=== PATIENT | male | born 1975 | race Caucasian/White ===

== ENCOUNTER 2017-09-20 17:05 | Emergency (ER) | payer OTHER, SELFPAY ==
[2017-09-20 17:06] VITALS: BP 136/90; PULSE 88; RESP 16; TEMP 37.1; O2SAT 96; BMI 29.3
--- NOTE | 2017-09-20 17:30 | ED.VISSUMM ---
- ER Visit Summary Date of Service: 09/20/17 Chief Complaint: Right small finger laceration History of Present Illness: The patient is a 42 M presenting with left small finger laceration. Patient was taking out the trash and cut his left small finger on a piece of porcelain from an old toilet. He states there were not small pieces of glass it was one sharp piece. He does not feel a foreign body sensation. His tetanus is up-to-date. No other injuries. Physical Examination: Vitals are stable. Patient is afebrile. Alert no acute distress. HEENT exam is unremarkable. Lungs are clear and equal bilaterally. Heart is regular rate and rhythm. Extremities left volar fifth digit proximal 2.5 cm laceration. Tendon function intact. Normal cap refill. Skin is warm and dry. No focal neurologic deficit. Remainder of exam is unremarkable. Emergency Department Course and Treatment: Laceration was repaired under sterile conditions. Anesthetized with LET, lidocaine. Irrigated with saline. Wound was explored, no foreign body visualized. 5, 5-0 simple sutures were placed. Patient tolerated this well. Advised to watch for signs of infection. Advised to follow-up for suture removal. Disposition: Discharge home Impression: Left small finger laceration, laceration repair This note was generated with [employer] dictation software. It may contain incorrect words, spelling, and punctuation that were not noted in review of the chart prior to signing ED Disposition - Plan for ED Patient: Chief Complaint: Laceration Referrals: Alex Abdullahi MD [Primary Care Provider] -
[2017-09-20] MEDS: Lidocaine/Epi/Tetracaine 50 ML 1 APPLIC TOPICAL (17:31)
--- NOTE | 2017-09-20 18:04 | ED.DEP ---
ED Disposition - Plan for ED Patient: Chief Complaint: Laceration Instructions: ED Laceration Hand Referrals: Alex Abdullahi MD [Primary Care Provider] -
[2017-09-20 18:19] VITALS: BP 103/70; PULSE 63; RESP 18; O2SAT 96
== END 2017-09-20 18:19 | disposition home or self-care (01) ==
PROVIDERS: Emergency Provider Emergency Medicine; Family Provider Family Medicine; PCP Family Medicine
DX: S61.217A Laceration without foreign body of left little finger without damage to nail, initial encounter (principal); W25.XXXA Contact with sharp glass, initial encounter; Y93.E9 Activity, other interior property and clothing maintenance; Y92.9 Unspecified place or not applicable; Y99.9 Unspecified external cause status
CPT/HCPCS: 12001; 99283

== ENCOUNTER → 2018-05-30 17:29 | Outpatient (CLI) | payer OTHER, SELFPAY | PROVIDERS: Family Provider Family Medicine; PCP Family Medicine; Referring Provider Family Medicine; Visit Provider Family Medicine | DX: T81.30XA Disruption of wound, unspecified, initial encounter (principal) | CPT/HCPCS: 87070; 87077; 87186; 87205 ==

== ENCOUNTER → 2018-12-20 10:25 | Outpatient (CLI) | payer OTHER, SELFPAY ==
[2018-12-20 12:55] LABS: Anion Gap 9 (5-15); BUN 20 mg/dL (7-18); Calcium,Total 8.9 mg/dL (8.5-10.1); Chloride 104 mmol/L (98-107); Creatinine, Serum 1.05 mg/dL (0.70-1.30); EST Glomerular Filtration Rate 82 mL/min (>60); Est Glom Filt Rate - Afr Amer 100 mL/min (>60); Glucose 134 mg/dL (74-106); Potassium 4.2 mmol/L (3.5-5.1); Sodium Level 141 mmol/L (136-145); Thyroid Stim Hormone (TSH) 1.12 uIU/mL (0.358-3.74)
== END ==
PROVIDERS: Family Provider Family Medicine; PCP Family Medicine; Referring Provider Family Medicine; Visit Provider Family Medicine
DX: R42 Dizziness and giddiness (principal)
CPT/HCPCS: 36415; 80048; 84443

== ENCOUNTER → 2019-01-15 15:52 | Outpatient (CLI) | payer OTHER, SELFPAY ==
--- NOTE | 2019-01-15 | IMM_PTH ---
PATIENT: JOSE ANTONIO CROFT LOC: SHY U#:[id number] AGE/SX: 50/M ROOM: RE01/15/[address]: Dr. Alex Abdullahi MD : 1975 BED: DIS: SPEC #: [id number] RECD: 01/17/19 12:42 STATUS: EMMANUEL GRACY #: [id number] WILTON: 01/15/19 00:[address]: Alex Abdullahi DEPT: IMMUNOHISTOCHEMISTRY RECD BY: Lukas Pak Tissues: Skin of back, NOS Procedures: [place]-1 (initial) SMA (add) CD34 (add) DESMIN (add) Vimentin (add) S-100 (add) PHYSICIAN & INSTITUTION [place] [id number] SPECIMEN INFORMATION: Tissue Source: B. Back skin lesion Clinical Info: Skin lesion (L98.9) Specimen Number: [id number] CPT code: 82270, 93652 x5 METHODOLOGY: Deparaffinized sections of prefer/formalin-fixed tissue or PAP/DQ stained slides are incubated with monoclonal/polyclonal antibodies/oligonucleotide probes. Localization is made via biotin free immunoperoxidase method. Appropriate controls are performed and reacted as expected. Results on target cell population are indicated in the following table: RESULTS: ANTIBODY / CLONE RESULT Block B S-100 (4C4.9) positive MART-1 (A-103) negative Actin (1A4) negative Desmin (CE-R-11) negative Vimentin (V9) positive CD34 (QBEnd-10) negative These tests were developed and their performance characteristics determined by [facility]. They may not have been cleared or approved by the U.S. Food and Drug Administration. The FDA has determined that such clearance or approval is not necessary. INTERPRETATION: B. Back skin lesion, biopsy: Consistent with neurofibroma. SJ:eris 01/18/19
--- NOTE | 2019-01-15 15:32 | LES_PTH ---
PATIENT: JOSE ANTONIO CROFT LOC: SHY U#:[id number] AGE/SX: 50/M ROOM: RE01/15/[address]: Dr. Alex Abdullahi MD : 1975 BED: DIS: SPEC #: [id number] RECD: 01/15/19 15:37 STATUS: EMMANUEL GRACY #: [id number] WILTON: 01/15/19 15:[address]: Alex Abdullahi DEPT: SURGICAL PATHOLOGY RECD BY: Bill Cheatham Tissues: A - Skin of chest B - Skin of back, NOS Procedures: Surgery Specimen Level IV HEADER OPERATION: Skin lesion PRE-OP DIAGNOSIS: Skin lesion (L98.9) TISSUE SUBMITTED: A. Chest skin lesion B. Back skin lesion. MICROSCOPIC DIAGNOSIS A. Chest skin lesion, biopsy: Consistent with lentigo. B. Back skin lesion: Consistent with neurofibroma. See comment. BRONWYN:regine 01/17/19 COMMENT B. Immunohistochemistry ([id number]) supports the above diagnosis. Case has been reviewed in consultation with Dr. Bass who concurs with the above diagnosis. IDC:AM MICROSCOPIC DESCRIPTION Slides are reviewed. GROSS DESCRIPTION A. Received in fixative is one container labeled with the patient's name and designated chest lesion. The specimen consists of round piece of suazo-brown tissue measuring 0.6 x 0.5 x 0.3 cm. This specimen is inked and submitted entirely in one cassette. B. Received in fixative is one container labeled with the patient's name and designated back lesion. The specimen consists of round piece of suazo-brown skin measuring 0.3 cm in diameter and 0.3 cm in length. The entire specimen is submitted in one cassette. /BRONWYN:sp 01/16/19 TC: 1 CPT: 77043 x2
== END ==
PROVIDERS: Family Provider Family Medicine; PCP Family Medicine; Referring Provider Family Medicine; Visit Provider Family Medicine
DX: L98.9 Disorder of the skin and subcutaneous tissue, unspecified (principal)
CPT/HCPCS: 88305; 88341; 88342

== ENCOUNTER → 2019-07-20 07:22 | Outpatient (CLI) | payer OTHER, SELFPAY ==
[2019-07-20 10:31] LABS: Anion Gap 5 (5-15); BUN 15 mg/dL (7-18); BUN/Creat Ratio 14.2 RATIO (10-20); Calcium,Total 9.2 mg/dL (8.5-10.1); Chloride 106 mmol/L (98-107); Cholesterol 218 mg/dL (200); Creatinine, Serum 1.06 mg/dL (0.70-1.30); EST Glomerular Filtration Rate 81 mL/min (>60); Est Glom Filt Rate - Afr Amer 98 mL/min (>60); Glucose 91 mg/dL (74-106); High Density Lipoprotein 49 mg/dL; Potassium 4.2 mmol/L (3.5-5.1); Sodium Level 141 mmol/L (136-145); Triglycerides 88 mg/dL; Very Low Density Lipoprotein 18 mg/dL (5-40)
== END ==
PROVIDERS: PCP Family Medicine; Referring Provider Family Medicine; Visit Provider Family Medicine
DX: Z00.00 Encounter for general adult medical examination without abnormal findings (principal)
CPT/HCPCS: 36415; 80048; 80061

== ENCOUNTER → 2020-04-21 18:07 | Outpatient (CLI) | payer OTHER, SELFPAY | PROVIDERS: PCP Family Medicine; Referring Provider Orthopaedic Surgery; Visit Provider Orthopaedic Surgery | DX: Z20.828 Contact with and (suspected) exposure to other viral communicable diseases (principal) | CPT/HCPCS: 87635; C9803; U0003 ==

== ENCOUNTER → 2020-10-03 | Outpatient (CLI) | payer OTHER, SELFPAY ==
--- NOTE | 2020-10-02 | IMM_PTH ---
PATIENT: JOSE ANTONIO CROFT LOC: SHY U#:[id number] AGE/SX: 45/M ROOM: RE10/03/[address]: Dr. Alex Abdullahi MD : 1975 BED: DIS: 10/03/2020 SPEC #: [id number] RECD: 10/06/20 13:48 STATUS: EMMANUEL REQ #: [id number] WILTON: 10/02/20 00:[address]: Alex Abdullahi DEPT: IMMUNOHISTOCHEMISTRY RECD BY: Beata Angela Tissues: Skin of chest Procedures: SMA (add) CD31 (add) CD34 (add) MACRO (add) P53 (add) Vimentin (add) 34BE12 (add) FACTOR VIII (add) NEUROFIL (add) Pankeratin (initial) MELAN-A (add) S-100 (add) PHYSICIAN & INSTITUTION [place] [id number] SPECIMEN INFORMATION: Tissue Source: Left chest neoplasm Clinical Info: Left chest neoplasm Specimen Number: [id number] CPT code: 65590, 17758 x11 METHODOLOGY: Deparaffinized sections of prefer/formalin-fixed tissue or PAP/DQ stained slides are incubated with monoclonal/polyclonal antibodies/oligonucleotide probes. Localization is made via biotin free immunoperoxidase method. Appropriate controls are performed and reacted as expected. Results on target cell population are indicated in the following table: RESULTS: ANTIBODY / CLONE RESULT AE1-3 (AE1/AE3/PCK26) negative Vimentin (V9) positive 34BE12 (34BE12) negative CD31 (CLAY/70A) negative Factor VIII (R Ag) negative CD34 (QBEnd-10) positive Macro (HAM-56) negative Actin (1A4) negative Melan A (A103) negative S-100 (4C4.9) positive Neurofil (2F11) negative P53 (DO-7) negative These tests were developed and their performance characteristics determined by [facility]. They may not have been cleared or approved by the U.S. Food and Drug Administration. The FDA has determined that such clearance or approval is not necessary. The above immunohistochemical/dualISH markers are ordered and reviewed by the Pathologist. INTERPRETATION: Skin lesion of left chest, biopsy: Consistent with neurofibroma. AM:baldo 10/07/2020
--- NOTE | 2020-10-02 | LES_PTH ---
PATIENT: JOSE ANTONIO CROFT LOC: SHY U#:[id number] AGE/SX: 45/M ROOM: RE10/03/[address]: Dr. Alex Abdullahi MD : 1975 BED: DIS: 10/03/2020 SPEC #: [id number] RECD: 10/02/20 17:25 STATUS: EMMANUEL GRACY #: [id number] WILTON: 10/02/20 00:[address]: Alex Abdullahi DEPT: SURGICAL PATHOLOGY RECD BY: Reymundo Blair Tissues: Skin of chest Procedures: Surgery Specimen Level IV HEADER OPERATION: Skin excision PRE-OP DIAGNOSIS: Left chest neoplasm TISSUE SUBMITTED: Left chest neoplasm MICROSCOPIC DIAGNOSIS Skin lesion of left chest, biopsy: Consistent with neurofibroma. AM:baldo 10/06/2020 COMMENT Immunohistochemistry ([id number]) supports the above diagnosis. Case has been reviewed in consultation with Dr. Hernandez who concurs with the above diagnosis. IDC:SJ MICROSCOPIC DESCRIPTION Slides are reviewed. GROSS DESCRIPTION Received in fixative is one container labeled with the patient's name and designated neoplasm left chest. The specimen consists of a long piece of suazo-light brown skin measuring 0.5 x 0.5 x 0.3 cm. The specimen is inked and submitted entirely in one cassette. It will be bisected at the time of embedding. / BRONWYN:baldo 10/03/20 TC:1 CPT: 81887
== END | disposition home or self-care (01) ==
LOC: LABSPEC 12:39
PROVIDERS: PCP Family Medicine; Visit Provider Family Medicine
DX: L98.9 Disorder of the skin and subcutaneous tissue, unspecified (principal)
CPT/HCPCS: 88305; 88341; 88342

== ENCOUNTER 2021-07-27 12:57 | Emergency (ER) | payer OTHER, SELFPAY ==
[2021-07-27 12:58] VITALS: BP 118/78; PULSE 72; RESP 15; TEMP 36; O2SAT 97; BMI 31.8
--- NOTE | 2021-07-27 13:14 | EKG12_ITS ---
Test Reason : PALP Blood Pressure : / mmHG Vent. Rate : 057 BPM Atrial Rate : 057 BPM P-R Int : 154 ms QRS Dur : 096 ms QT Int : 418 ms P-R-T Axes : 020 -09 004 degrees QTc Int : 406 ms Sinus bradycardia Otherwise normal ECG Confirmed by ADAMARIS FRAGA, ZOE ([id number]), medical transcription editor BELÉN COLEMAN ([id number]) on 07/28/2021 9:55:47 AM Referred By: PC Confirmed By:ZOE BAILON MD
--- NOTE | 2021-07-27 13:14 | RAD_ITS ---
STUDY: X-RAY CHEST REASON FOR EXAM: Male, 46 years old. Chest pain TECHNIQUE: Single AP portable view of the chest. COMPARISON: Comparison is made with prior study dated 03/23/2017. FINDINGS: EKG electrodes are seen. The lungs are clear and expanded. There is no demonstrated pleural abnormality. Normal size heart. Normal mediastinum and luisa. Normal visualized pulmonary arteries. Normal visualized aortic arch and descending thoracic aorta. Normal visualized thoracic spine. Normal visualized ribs, clavicles, and shoulders. There is no demonstrated abnormality of the visualized soft tissue structures of the upper abdomen. RAD/Chest 1 View (Portable) IMPRESSION: Normal x-ray examination of the chest. Electronically Signed: Clifton Pappas MD at 14:02 EST ,
[2021-07-27 13:35] LABS: Absolute Lymphocyte Count 2.22 X10^3/uL (0.83-4.51); Basophil# 0.05 X10^3/uL; Basophil% 0.8 % (0-1); Eosinophil# 0.19 X10^3/uL; Eosinophils% 3.2 % (0-5); Hematocrit 41.5 % (40-54); Hemoglobin 14.2 g/dL (13.0-16.5); Lymphocyte # 2.22 X10^3/ul (0.83-4.51); Lymphocyte % 37.4 % (19-41); Mean Corp Hgb Conc 34.2 g/dL (32-36); Mean Corpuscular Hgb 30.5 pg (27.0-32.0); Mean Corpuscular Volume 89.2 fL (80-94); Mean Platelet Vol. 11.6 fl (6.2-12.0); Monocyte# 0.48 X10^3/uL; Monocyte% 8.1 % (0-10); NRBC Flagged by Analyzer 0 % (0-5); Neutrophil # 2.99 X10^3/uL (2.7-7.7); Neutrophil % 50.3 % (47-70); Platelet Count 199 K/mm3 (150-450); RBC Distribution Width CV 12.7 % (11.6-14.6); RBC Distribution Width SD 41.3 fl (35.1-43.9); Red Blood Count 4.65 M/mm3 (4.6-6.2); White Blood Count 5.9 K/mm3 (4.4-11.0)
--- NOTE | 2021-07-27 13:37 | ED.VIS.CHEST ---
HPI History of Present Illness Chief Complaint: Palpitations Narrative Narrative: Patient presents with palpitations he has had 3 episodes in the past 5 days where he has had very brief episode of some sort of palpitations after which he felt lightheaded for about 1/2-hour. Currently he is asymptomatic. He has no fevers chills cough or congestion. He denies any chest pain. No pleuritic component. No lower extreme edema or calf pain. No syncope. No vertigo. PFSH PFSH Home Medications citalopram 40 mg PO DAILY 03/23/17 [History Last Taken 09/20/17] Allergy/AdvReac Type Severity Reaction Status Date / Time cefaclor [From [facility]] Allergy Hives Verified 07/27/21 13:00 codeine AdvReac Other Verified 07/27/21 13:00 Social History Smoking Status: Never smoker ROS ROS ED ROS Narrative Past medical history: Reviewed Medications: Reviewed Social history: Noncontributory Review of systems: All systems negative except as indicated General: No fever Eyes: No visual changes ENT: No upper airway congestion, normal voice Neck: No neck pain Cardiovascular: No chest pain. Otherwise as in HPI Respiratory: No shortness of breath or cough Gastrointestinal: No abdominal pain, nausea vomiting or diarrhea Genitourinary: No dysuria Musculoskeletal: Denies myalgias no difficulty with ambulation Skin: No rash Neurological: No memory loss, confusion or any focal weakness Psych: No recent behavioral changes Hematologic: No easy bleeding or easy bruising EXAM Physical Exam Narrative Exam Narrative: Physical exam General: Well nourished, Well developed, No Acute Distress Head: Normocephalic, Atraumatic Eyes: Conjunctiva not pale ENT: Moist mucous membranes Neck: Supple, Nontender, No lymphadenopathy Cardiovascular: Regular rate, Regular rhythm. No murmur Respiratory: No distress, CTA bilaterally Abdomen: Soft, Nontender, Nondistended Back: Nontender, Normal Inspection. Negative for: CVA tenderness Extremities: Nontender, No edema Skin: Normal color, No rash Neurological: Alert, Normal Strength, Normal Sensation Psychological: Normal affect Const Vital Signs: 07/27/21 12:58 07/27/21 13:41 07/27/21 14:00 Temperature 96.8 F L Temperature Source Temporal Pulse Rate 72 53 L Respiratory Rate 15 14 Blood Pressure 118/78 111/76 Blood Pressure Mean 91 87 Pulse Ox 97 97 Oxygen Delivery Method Room Air Room Air Room Air MDM MDM MDM Narrative Medical decision making narrative: Patient has a normal ED work-up. I will place a Holter monitor on him otherwise he can follow-up with PCP or cardiology. He has a normal EKG and normal x-ray. Lab Data Labs: Laboratory Results - last 24 hr 07/27/21 07/27/21 13:26 13:26 WBC 5.9 RBC 4.65 Hgb 14.2 Hct 41.5 MCV 89.2 MCH 30.5 MCHC 34.2 RDW Std Deviation 41.3 RDW Coeff of Ayush 12.7 Plt Count 199 MPV 11.6 Immature Gran % (Auto) 0.200 Neut % (Auto) 50.3 Lymph % (Auto) 37.4 Dare % (Auto) 8.1 Eos % (Auto) 3.2 Baso % (Auto) 0.8 Absolute Neuts (auto) 3.0 Absolute Lymphs (auto) 2.22 Nucleated RBC % 0 Sodium 136 Potassium 4.0 Chloride 106 Carbon Dioxide 28.0 Anion Gap 2 L BUN 18 Creatinine 1.15 Estim Creat Clear Calc 89.97 Est GFR (MDRD) Af Amer 89 Est GFR (MDRD) Non-Af 73 BUN/Creatinine Ratio 15.7 Glucose 110 H Calcium 9.3 Troponin I High Sens 5 Radiography Diagnostic Testing: Clinical Impression(s) from Imaging Studies Chest X-Ray 07/27/21 13:14 IMPRESSION: Normal x-ray examination of the chest. Electronically Signed: Clifton Pappas MD at 14:02 EST , EKG Initial EKG: Comments: Sinus rhythm with a rate of 57. Normal AL and QTc intervals. No ischemic changes. Interpreted by emergency doctor Discharge Plan Triage Chief Complaint: Palpitations ED Provider: Aelx Colon Dx/Rx/DC Orders Clinical Impression: Palpitation Instructions: ED Palpitations Prescriptions: No Action citalopram 20 MG tablet 40 mg PO DAILY RF: 0 Primary Care Provider: Alex Abdullahi Referrals: Micah Knowles MD [STAFF PHYSICIAN] - Alex Abdullahi MD [Primary Care Provider] - 3-5 Days Disposition Disposition: Home, Self Care
[2021-07-27] MEDS: Aspirin 81 MG TAB.CHEW 324 MG PO (13:41)
[2021-07-27 13:52] LABS: Anion Gap 2 (5-15); BUN 18 mg/dL (7-18); BUN/Creat Ratio 15.7 RATIO (10-20); Calcium,Total 9.3 mg/dL (8.5-10.1); Chloride 106 mmol/L (98-107); Creatinine, Serum 1.15 mg/dL (0.70-1.30); EST Glomerular Filtration Rate 73 mL/min (>60); Est Glom Filt Rate - Afr Amer 89 mL/min (>60); Estimated Creatinine Clearance 89.97 ml/min; Glucose 110 mg/dL (74-106); Sodium Level 136 mmol/L (136-145); Troponin-I HS 5 pg/mL (3.0-78.0)
[2021-07-27 14:00] VITALS: BP 111/76; PULSE 53; RESP 14; O2SAT 97
[2021-07-27 14:32] VITALS: BP 107/79; PULSE 71; O2SAT 97
== END 2021-07-27 14:42 | disposition home or self-care (01) ==
PROVIDERS: Emergency Provider Emergency Medicine; PCP Family Medicine; Visit Provider Emergency Medicine
DX: R00.2 Palpitations (principal); Z79.899 Other long term (current) drug therapy
CPT/HCPCS: 71045; 80048; 84484; 85025; 93005; 99284

== ENCOUNTER 2021-07-27 14:18 | Outpatient (CLI) | payer OTHER, SELFPAY | END 2021-07-27 23:59 | disposition home or self-care (01) | LOC: PSN 14:20 | PROVIDERS: PCP Family Medicine; Visit Provider Emergency Medicine | DX: R00.2 Palpitations (principal) | CPT/HCPCS: 93225; 93226 ==

== ENCOUNTER → 2023-03-18 | Outpatient (CLI) | payer OTHER, SELFPAY ==
[2023-03-18 10:57] LABS: Anion Gap 4 (5-15); BUN 21 mg/dL (7-18); BUN/Creat Ratio 18.9 RATIO (10-20); Calcium,Total 9.1 mg/dL (8.5-10.1); Chloride 106 mmol/L (98-107); Cholesterol 232 mg/dL (200); Creatinine, Serum 1.11 mg/dL (0.70-1.30); EST Glomerular Filtration Rate 76 mL/min (>60); Est Glom Filt Rate - Afr Amer 92 mL/min (>60); Glucose 105 mg/dL (74-106); High Density Lipoprotein 49 mg/dL; Potassium 4.1 mmol/L (3.5-5.1); Sodium Level 136 mmol/L (136-145); Thyroid Stim Hormone (TSH) 1.57 uIU/mL (0.358-3.74); Triglycerides 80 mg/dL; Very Low Density Lipoprotein 16 mg/dL (5-40)
== END | disposition home or self-care (01) ==
LOC: MFPLAB 08:20
PROVIDERS: PCP Family Medicine
DX: Z00.00 Encounter for general adult medical examination without abnormal findings (principal)
CPT/HCPCS: 36415; 80048; 80061; 84403; 84443

== ENCOUNTER 2023-07-19 08:26 | Day surgery (SDC) | payer OTHER, SELFPAY ==
[2023-07-19] VITALS (8 sets, daily range): BP systolic 88–109; BP diastolic 63–82; PULSE 56–74; RESP 16; TEMP 35.9–36.4; O2SAT 57–99; BMI 32.3
[2023-07-19] MEDS: Lactated Ringers 1,000 ML 15 ML IV (08:49)
--- NOTE | 2023-07-19 09:06 | H&P.OPEN ---
HPI - General HPI Narrative JOSE ANTONIO CROFT, is a 48 M who presents for screening colonoscopy. He has never had a colonoscopy in the past. He denies any abdominal pain or blood in the stool. He has no family history of colon cancer. [facility] Medical History (Updated 07/15/23 @ 14:36 by Marisel Weber) Alcohol use Anxiety Depression Non-smoker Wears glasses Home Medications citalopram 20 mg tablet (Celexa) 20 mg PO DAILY 06/14/23 [History Last Taken Unknown] Allergy/AdvReac Type Severity Reaction Status Date / Time cefaclor [From Ceclor] Allergy Hives Verified 07/19/23 08:46 codeine AdvReac Other Verified 07/19/23 08:46 Family History (Updated 06/14/23 @ 10:47 by Jessica Coombs) Grandfather Lung cancer Grandmother CVA (cerebral vascular accident) Leukemia Father Diabetes Surgical History (Updated 07/15/23 @ 14:36 by Marisel Weber) History of meniscectomy of right knee History of vasectomy Hx of tonsillectomy Social History (Updated 06/14/23 @ 10:48 by Jessica Coombs) household members: spouse current occupational status: employed current occupation: Commercial Real Estate Attorney, Sub Teacher Smoking Status: Never smoker alcohol intake: never substance use type: does not use Past Medical/Surgical History Planned Operation Planned Operative Procedure/s: COLONOSCOPY-OA Previous Hospitalizations/Surgeries HX Hospitalizations: No Any Problems With Anesthesia: No You/Your Family Experience Fever (Hyperthermia) With Anes: No Cholinesterase deficiency: No Cardiovascular Hx Hypertension: No Respiratory Hx Asthma: No Hx Sleep Apnea: No Hx Respiratory Tract Infection/Cold (presently): No Do You Snore Loudly (louder than talking or can be heard): No Do You Often Feel Tired/ Fatigued/ Sleepy Dring Daytime?: No Has Anyone Observed You Stop Breathing During Sleep?: No Result (for STOP score): Negative Smoking Status: Never smoker Neurological Does patient have nerve stimulator: No Endocrine Hx Diabetes: No Psycho/Social Hx Anxiety: Yes Miscellaneous Hx Cancer: No Recent Exposure to Contagious Disease: No Allergies cefaclor [From Ceclor] Allergy (Verified 07/19/23 08:46) Hives codeine Adverse Reaction (Verified 07/19/23 08:46) Other CHANGED MOOD, Hyperactivity Discharge Is Pt Admitted From a Half-Way, or a Senior Care: No After D/C, Where Do you Plan to Go: Return Home Vital Signs Vital Signs Vital Signs: 07/19/23 08:46 07/19/23 08:46 Temperature 96.7 F L Temperature Source Temporal Pulse Rate 67 Respiratory Rate 16 Respiratory Pattern Normal Blood Pressure 109/82 H Blood Pressure Mean 91 Blood Pressure Source Monitor Blood Pressure Position Semi-Fowlers Blood Pressure Location Right Arm Pulse Ox 98 Oxygen Delivery Method Room Air Weight Weight: 238 lb 1.588 oz Body Mass Index (BMI) 32.3 Physical Exam Const alert and oriented x3 HEENT normocephalic Eyes PERRL Resp normal respiratory effort and normal air movement Cardio regular rate and regular rhythm GI soft to palpation, non-tender and non-distended Extremity normal to inspection Assessment & Plan Assessment/Plan (1) Encounter for screening for malignant neoplasm of colon: PLAN: I explained endoscopy in detail to the patient. I explained the risks including but not limited to stroke or heart attack with anesthesia, perforation of the GI tract, bleeding, infection. I explained that any of these could necessitate further emergency surgery. The patient understands and all questions were answered sufficiently. The patient wishes to proceed with procedure. Mario Alberto Fitzgerald MD Pager: [facility] [address] [place] [address], [address] [place] [address] Office: Surgery Risks - Colonoscopy Risks Include but are not Limited To: Risks include but are not limited to: Bleeding, perforation requiring further surgery, inability to complete colonoscopy requiring barium enema.
--- NOTE | 2023-07-19 09:41 | OP.CCLET_ITS ---
07/19/2023 Alex Abdullahi MD [address] [place] [id number] Re : Colonoscopy procedure for Som Moncada Dear Dr. Abdullahi This procedure was performed on Wednesday, July 19, 2023. My impressions and recommendations are as follows: Impressions : - The entire examined colon is normal on direct and retroflexion views. - No specimens collected. Recommendations : - Discharge patient to home. - Resume previous diet. - Continue present medications. - Repeat colonoscopy in 10 years for screening purposes. My findings are described in the full procedure note, which is enclosed. If I can be of further assistance, please feel free to contact me at Doctor phone number(s): , Work: . Sincerely, Mario Alberto Fitzgerald MD 07/19/2023 9:40:51 AM This report has been signed electronically.
--- NOTE | 2023-07-19 09:41 | OP.COLON_ITS ---
Patient Name: Som Moncada Procedure Date: 07/19/2023 9:07 AM Date of : 1975 Age: 48 Procedure: Colonoscopy Indications: Screening for colorectal malignant neoplasm Providers: Mario Alberto Fitzgerald MD Medicines: Propofol per Anesthesia Patient Profile: This is a 48 year old male. Refer to note in patient chart for documentation of history and physical. Last Colonoscopy: none. The patient's first colonoscopy is today. Complications: No immediate complications. Procedure: Pre-Anesthesia Assessment: - Prior to the procedure, a History and Physical was performed, and patient medications and allergies were reviewed. The patient's tolerance of previous anesthesia was also reviewed. The risks and benefits of the procedure and the sedation options and risks were discussed with the patient. All questions were answered, and informed consent was obtained. Prior Anticoagulants: The patient has taken no anticoagulant or antiplatelet agents. After reviewing the risks and benefits, the patient was deemed in satisfactory condition to undergo the procedure. After I obtained informed consent, the scope was passed under direct vision. Throughout the procedure, the patient's blood pressure, pulse, and oxygen saturations were monitored continuously. The Colonoscope was introduced through the anus and advanced to the cecum, identified by appendiceal orifice and ileocecal valve. The colonoscopy was performed without difficulty. The patient tolerated the procedure well. The quality of the bowel preparation was good. The ileocecal valve, appendiceal orifice, and rectum were photographed. Scope In: 9:14:00 AM Scope Withdrawal Time 0 hours 6 minutes 5 seconds Scope Out: 9:32:48 AM Total Procedure Duration Time 0 hours 18 minutes 48 seconds Findings: The entire examined colon appeared normal on direct and retroflexion views. Impression: - The entire examined colon is normal on direct and retroflexion views. - No specimens collected. Recommendation: - Discharge patient to home. - Resume previous diet. - Continue present medications. - Repeat colonoscopy in 10 years for screening purposes. Procedure Code(s): --- Professional --- 02436, Colonoscopy, flexible; diagnostic, including collection of specimen(s) by brushing or washing, when performed (separate procedure) Diagnosis Code(s): --- Professional --- Z12.11, Encounter for screening for malignant neoplasm of colon CPT copyright 2021 [employer]. All rights reserved. The codes documented in this report are preliminary and upon in room dining server review may be revised to meet current compliance requirements. Mario Alberto Fitzgerald MD 07/19/2023 9:40:51 AM This report has been signed electronically. Number of Addenda: 0 Note Initiated On: 07/19/2023 9:07 AM
--- NOTE | 2023-07-19 09:56 | EKG12_ITS ---
Test Reason : POST OP Blood Pressure : / mmHG Vent. Rate : 060 BPM Atrial Rate : 060 BPM P-R Int : 148 ms QRS Dur : 096 ms QT Int : 426 ms P-R-T Axes : 022 -01 000 degrees QTc Int : 426 ms Sinus rhythm with occasional Premature ventricular complexes Otherwise normal ECG When compared with ECG of 27-JUL-2021 13:28, Premature ventricular complexes are now Present Confirmed by José Miguel Zendejas ([id number]), science editor SUGAR VAZQUEZ ([id number]) on 07/26/2023 7:46:34 AM Referred By: Alex Abdullahi Confirmed By:José Miugel Zendejas
== END 2023-07-19 10:48 | disposition home or self-care (01) ==
LOC: EN 08:28 → AC 08:29
PROVIDERS: PCP Family Medicine; Referring Provider Family Medicine; Visit Provider Surgery
PROC: 0DJD8ZZ Inspection of Lower Intestinal Tract, Via Natural or Artificial Opening Endoscopic (ICD-10-PCS; CPT 45378; principal; 2023-07-19 09:25)
DX: Z12.11 Encounter for screening for malignant neoplasm of colon (principal)
CPT/HCPCS: 45378; 93005; J7120

== ENCOUNTER → 2024-04-12 | Outpatient (CLI) | payer OTHER, SELFPAY ==
[2024-04-12 10:51] LABS: Anion Gap 6 (5-15); BUN 18 mg/dL (7-18); BUN/Creat Ratio 16.5 RATIO (10-20); Calcium,Total 9.4 mg/dL (8.5-10.1); Chloride 105 mmol/L (98-107); Cholesterol 243 mg/dL (200); Creatinine, Serum 1.09 mg/dL (0.70-1.30); EST Glomerular Filtration Rate 77 mL/min (>60); Est Glom Filt Rate - Afr Amer 93 mL/min (>60); Glucose 110 mg/dL (74-106); High Density Lipoprotein 56 mg/dL; Potassium 4.4 mmol/L (3.5-5.1); Sodium Level 137 mmol/L (136-145); Triglycerides 108 mg/dL; Very Low Density Lipoprotein 22 mg/dL (5-40)
== END | disposition home or self-care (01) ==
LOC: MFPLAB 08:36
PROVIDERS: PCP Family Medicine; Visit Provider Family Medicine
DX: Z00.00 Encounter for general adult medical examination without abnormal findings (principal)
CPT/HCPCS: 36415; 80048; 80061

== ENCOUNTER → 2024-12-11 | Outpatient (CLI) | payer OTHER, SELFPAY ==
[2024-12-11 16:43] LABS: AST(SGOT) 23 U/L (<=37); Alanine Aminotransfer ALT/SGPT 23 U/L (<=46); Albumin, Serum 4.6 g/dL (3.5-5.0); Alkaline Phosphatase 77 U/L (40-129); Anion Gap 14 (5-15); BUN 18 mg/dL (4-19); BUN/Creat Ratio 18.0 RATIO (10-20); Calcium,Total 9.7 mg/dL (7.6-11.0); Carbon Dioxide 22.4 mmol/L (21.0-32.0); Chloride 102 mmol/L (98-108); Cholesterol 215 mg/dL (<=200); Globulin 2.8 g/dL (2.2-4.2); Glucose 87 mg/dL (70-99); Low Density Lipoprotein Calc. 146 mg/dL; Potassium 4.2 mmol/L (3.3-5.1); Triglycerides 95 mg/dL; Very Low Density Lipoprotein 19 mg/dL (5-40); cholesterol:hdl ratio screen 4.33
== END | disposition home or self-care (01) ==
LOC: MFPLAB 11:14
PROVIDERS: PCP Family Medicine; Referring Provider Family Medicine; Visit Provider Family Medicine
DX: R00.2 Palpitations (principal)
CPT/HCPCS: 36415; 80053; 80061